=== PATIENT | female | born 1965 | race Caucasian/White ===

== ENCOUNTER → 2016-06-14 | Outpatient (CLI) | payer BC ==
[2016-06-14 11:00] LABS: EKG EKG PERFORMED
[2016-06-14 11:53] LABS: Basophils # (A) 0.1 k/uL (0-0.2); Basophils % (A) 1 %; CH 29.6; CHCM 31.9; Eosinophils # (A) 0.1 k/uL (0-0.7); Eosinophils % (A) 1 %; HCT 39.3 % (34.0-46.0); HDW 2.82; HGB 12.5 gm/dL (11.4-16.0); Hypochromasia Slight; Luc # (Auto) 0.18; Luc % (Auto) 2; Lymphocytes # (A) 2.2 k/uL (1.0-4.8); Lymphocytes % (A) 28 %; MCH 29.5 pg (25.0-35.0); MCHC 31.8 g/dL (31.0-37.0); MCV 92.8 fL (80.0-100.0); Mean Platelet Volume 6.8; Monocytes # (A) 0.3 k/uL (0-1.0); Monocytes % (A) 4 %; Neutrophils # (A) 5.1 k/uL (1.3-7.7); Neutrophils % (A) 65 %; RBC 4.23 m/uL (3.80-5.40); RDW 14.9 % (11.5-15.5); WBC 7.9 k/uL (3.8-10.6); WBC (Perox) 8.33
[2016-06-14 11:57] LABS: Appearance,Urine Cloudy (Clear); Bacteria,Urine Occasional /hpf; Bilirubin,Urine Negative (Negative); Glucose,Urine (UA) Negative (Negative); Ketones,Urine Trace (Negative); Leukocyte Esterase,Urine Moderate (Negative); Mucus,Urine Few /hpf; Nitrite,Urine Negative (Negative); PH, Urine 5.5 (5.0-8.0); Particle Count 10632; Protein,Urine 1+ (Negative); RBC,Urine 8 /hpf (0-5); Specific Gravity,Urine 1.025 (1.001-1.035); Squamous Epithelial Cell,Urine 3 /hpf (0-4); UA Billing (MACRO vs. MICRO) MICRO; WBC,Urine 11 /hpf (0-5)
[2016-06-14 12:10] LABS: ALT 31 U/L (9-52); AST 17 U/L (14-36); Alkaline Phosphatase 133 U/L (38-126); Anion Gap 13 mmol/L; Blood Urea Nitrogen 12 mg/dL (7-17); Calcium 9.9 mg/dL (8.4-10.2); Carbon Dioxide 22 mmol/L (22-30); Chloride 105 mmol/L (98-107); Glucose 106 mg/dL (74-99); Non-African American GFR(MDRD) >60 (>60 ml/min/1.73 sqM); Potassium 4.5 mmol/L (3.5-5.1); Sodium 140 mmol/L (137-145); Total Bilirubin 0.5 mg/dL (0.2-1.3); Total Protein 7.8 g/dL (6.3-8.2)
[2016-06-14 12:20] LABS: Partial Thromboplastin Time 23.7 sec (22.0-30.0); Prothrombin Time 10.3 sec (9.0-12.0)
== END | disposition home or self-care (01) ==
LOC: LABPAT 10:46
PROVIDERS: ATTEND Orthopaedic Surgery
DX: Z01.812 Encounter for preprocedural laboratory examination (principal); Z01.810 Encounter for preprocedural cardiovascular examination
CPT/HCPCS: 80053; 81001; 85025; 85610; 85730; 86850; 86900; 86901; 87070; 93005

== ENCOUNTER 2016-06-25 11:17 | Inpatient (IN) | payer BC ==
[2016-06-20 17:31] VITALS: BMI 26.6
[~2016-06-25 11:17] MED LIST: ACETAMINOPHEN TAB 500 MG TAB PO ONE; DEXAMETHASONE SOD PHOSPHATE 10 MG/ML 1 ML VIAL IV ONE; FAMOTIDINE 20 MG/2 ML VIAL IV PRN; LACTATED RINGERS 1,000 ML IV SCH; LIDOCAINE 1% 20 ML VIAL (10MG/ML) FOR IV START INTRADERMA PRN; MELOXICAM 7.5 MG TAB PO ONE; MIDAZOLAM 2 MG/2 ML VIAL IV PRN; ONDANSETRON 4 MG/2 ML VIAL IVP ONE; SCOPOLAMINE 1.5MG/72HR PATCH TRANSDERM ONE; TRANEXAMIC ACID 1,000 MG in SODIUM CHLORIDE 0.9% 100 ML IVPB ONE; ceFAZolin 2 GM in SODIUM CHLORIDE 0.9% 100 ML IVPB ONE
[2016-06-25] MEDS ORDERED: ceFAZolin 3,000 MG in SODIUM CHLORIDE 0.9% IRRIGATIO 3,000 ML IRRIGATION ONE (12:44)
[2016-06-25] MEDS ORDERED: PROPOFOL 10 MG/ML 20 ML VIAL IV ONE (12:44)
[2016-06-25] MEDS ORDERED: fentaNYL (PF) 50 MCG/ML 2 ML AMP ONE (12:44)
[2016-06-25] MEDS ORDERED: TRANEXAMIC ACID 1,000 MG/10 ML VIAL ONE (12:44)
[2016-06-25] MEDS ORDERED: SODIUM CHLORIDE 0.9% IRRIG 1,000 ML BTL IRRIGATION ONE (12:44)
[2016-06-25] MEDS ORDERED: KETAMINE 10 MG/ML 20 ML VIAL ONE (12:44)
[2016-06-25] MEDS ORDERED: HEPARIN SODIUM,PORCINE 10,000 UNIT/ML 1 ML VIAL ONE (12:44)
[2016-06-25] MEDS ORDERED: ePHEDrine 50 MG/ML 1 ML AMP ONE (12:44)
[2016-06-25] MEDS ORDERED: GLYCOPYRROLATE 0.2 MG/ML 2 ML VIAL ONE (12:44)
[2016-06-25] MEDS ORDERED: LIDOCAINE 1% INJ 10MG/ML (20 ML MDV) ONE (12:44)
[2016-06-25] MEDS ORDERED: PHENYLEPHRINE-0.9% NACL SYG 1 MG/10 ML SYRINGE ONE (12:44)
[2016-06-25] MEDS ORDERED: SODIUM CHLORIDE 0.9% 100 ML BAG ONE (12:44)
[2016-06-25] MEDS ORDERED: MIDAZOLAM 2 MG/2 ML VIAL ONE (12:44)
[2016-06-25] MEDS: ROPIVACAINE 246.25 MG, EPINEPHrine 0.5 MG, KETOROLAC 30 MG, cloNIDine HCL/PF 80 MCG, WA... MISCELLANE ONE ×10 (13:25→14:26)
--- NOTE | 2016-06-25 14:39 | XR ---
FLUOROSCOPY 19 seconds of fluoroscopy time were utilized during anterior hip. 2 images document the procedure.
[2016-06-25] MEDS ORDERED: LACTATED RINGERS 1,000 ML IV ONE (14:40)
[2016-06-25] MEDS ORDERED: HYDROmorphone 1 MG/ML 1 ML SYRINGE IVP PRN ×3 (14:56)
[2016-06-25] MEDS ORDERED: NALOXONE 0.4 MG/ML 1 ML VIAL IV PRN (14:56)
[2016-06-25] MEDS ORDERED: MAGNESIUM HYDROXIDE 2,400 MG/10 ML CUP PO PRN (14:56)
[2016-06-25] MEDS ORDERED: ONDANSETRON 4 MG/2 ML VIAL IVP PRN (14:56)
[2016-06-25] MEDS ORDERED: DIAZEPAM 5 MG TAB PO PRN ×2 (14:56)
[2016-06-25] MEDS ORDERED: HYDROcodone/APAP 5-325MG 1 EACH TAB PO PRN (14:56)
--- NOTE | 2016-06-25 14:58 | P.OP ---
Date of Procedure: 06/25/16 Preoperative Diagnosis: Severe osteoarthritis left hip Postoperative Diagnosis: Severe osteoarthritis left hip Procedure(s) Performed: Left total hip arthroplasty with a direct anterior approach Implants: Harris and nephew Polarstem size 3 standard Harris & Nephew R3, 3 hole acetabular shell, 52 mm Harris [employer] Nephew reflection 6.5 mm cancellus screw, 20 mm 3 Harris [employer] Nephew R3, XLPE 20 acetabular liner Harris & Nephew Oxinium femoral head 36 m, +0 All components were press-fit. The articulation is ceramic on polyethylene. Anesthesia: spinal Surgeon: Ed Mendoza Fishing Accessories Maker #1: Lilia Lepe Estimated Blood Loss (ml): 125 Pathology: other (Femoral head) Condition: stable Disposition: PACU Indications for Procedure: After failure of conservative treatment we discussed the surgical and nonsurgical treatment options at length. Patient wishes to proceed with a total hip arthroplasty with a direct anterior approach. Complications specific to this procedure were discussed at length, including but not limited to infection, leg length discrepancy, dislocation, and nerve injury. Patient is aware of all these complications and informed consent was obtained Operative Findings: The operative findings are consistent with severe osteoarthritis of the left hip Description of Procedure: Patient was seen and evaluated in the preoperative area, consent was reviewed, and the surgical site was marked with a skin marker. Patient was then brought to the operating room and given prophylactic antibiotics intravenously. 1 g of Tranexamic acid was also given. A spinal anesthetic was administered by the anesthesia department. The patient was then placed on the hand table with the bony prominences well-padded. The hip area was then prepped and draped in usual sterile fashion. A universal timeout was then performed, which confirmed the patient's name, surgical site, ALLERGIES, and procedure being performed. Next the incision site was located at 1 cm distal and 1 cm lateral to the anterior superior iliac spine. The skin and subcutaneous tissues were sharply incised. Incision was carefully dissected down to the fascia overlying the tensor fascia yoni muscle. This fascia was then incised in line with the incision. Next, using blunt finger dissection, the tensor fascia yoni muscle was dissected off its investing fascia. The muscle was then carefully retracted laterally with a cobra retractor over the lateral neck of the femur. Next, the circumflex vessels were identified and cauterized using the AquaMantis device. The anterior hip capsule was then exposed. The capsule was then opened and an inverted T fashion. Retention sutures were placed in the inferior arms of the capsule. Cobra retractors were then placed intracapsularly. The proximal femur was then visualized. The femoral neck was then osteotomized appropriate level above the lesser trochanter. Small amount of traction was placed with the hand table. A small wedge of bone was then removed from the remaining femoral head. Next, using a corkscrew femoral head was easily removed from the acetabulum. On gross visual inspection, the femoral head had complete loss of articular cartilage in multiple periarticular osteophytes. Attention was then turned to the acetabulum. the acetabulum was exposed and any remaining labrum was excised. Sequential reaming of the acetabulum was performed using fluoroscopic guidance. When the appropriate size was reached, a trial was then placed. The position and fit of the trial was checked with fluoroscopy. The trial was then removed. Then, using fluoroscopic guidance, the final implant was impacted at 20 of anteversion and 40 of abduction, and fully seated in the acetabulum. 3 screws were then placed in the acetabulum. Again fluoroscopy was used to check position of the screws. Next, the liner was then impacted, with a 20 elevated liner located in the anterior superior quadrant. Component locking was confirmed. Attention was then directed to the femur. With the aid of the Anya table, the femur was externally rotated to approximately 130, extended, and abducted under the opposite leg. A side hook was then placed under the proximal femur, and the side hook elevator was used to elevate the proximal femur. Retractors were then placed. A capsular release was performed, as well as a release of the conjoined tendon, which afforded excellent visualization of the proximal femur. Next, a box osteotome was used to lateralize the proximal femur. A plug shaper hand was then used to locate the femoral canal. Sequential broaching was then performed with appropriate size which afforded excellent fixation in the proximal femur. The calcar was then planed. A trial was then placed with appropriate head and neck, and the hip was gently reduced with the aid of the Anya table. Fluoroscopy was then used to check position of the components, as well as to ensure equal leg lengths. The hip was then gently dislocated and the trials were then removed. Final implants were then impacted and the hip was again reduced. Final fluoroscopic x-rays confirmed that the components were in anatomic position, as well as equal leg lengths. The hip was also taken through range of motion, and found to be stable. The hip was then copiously irrigated with antibiotic solution with pulsatile lavage. The hip was then irrigated with Irrisept solution. The soft tissues were then injected with ropivacaine solution. A second dose of 1 g of Tranexamic acid was given. the fascia was then closed with 2-0 strata fix suture. The subcutaneous tissue was closed with 3-0 Vicryl. The subcuticular tissue was closed with 30 strata fix suture. The skin was then closed with Dermabond tape. The patient was then transferred to the recovery room in stable condition. The Asst. Lilia Lepe was required due to the complexity of surgery, and the need for skilled assembler surgical garment for positioning, draping, exposure, retraction, and closure of the wound.and closure of the wound.
[2016-06-25] MEDS: HYDROmorphone 1 MG/ML 1 ML SYRINGE IVP PRN ×4 (15:10→15:34)
[2016-06-25] MEDS: hydrOXYzine PAMOATE 25 MG CAP PO PRN (17:46)
[2016-06-25] MEDS: HYDROcodone/APAP 5-325MG 1 EACH TAB PO PRN (17:46)
[2016-06-25] MEDS: SODIUM CHLORIDE 0.9% 1,000 ML IV SCH (19:39)
[2016-06-25] MEDS: ceFAZolin 2 GM in SODIUM CHLORIDE 0.9% 100 ML IVPB SCH (19:39)
[2016-06-25] MEDS ORDERED: SENNOSIDES-DOCUSATE SODIUM 1 EACH TAB PO SCH (21:00)
[2016-06-25] MEDS: ASPIRIN 325 MG TAB PO SCH (21:16)
[2016-06-25 21:38] VITALS: RESP 16
[2016-06-26] MEDS: hydrOXYzine PAMOATE 25 MG CAP PO PRN (03:49)
[2016-06-26] MEDS: HYDROcodone/APAP 5-325MG 1 EACH TAB PO PRN (03:49)
[2016-06-26] MEDS: ceFAZolin 2 GM in SODIUM CHLORIDE 0.9% 100 ML IVPB SCH (04:24)
[2016-06-26] MEDS: SODIUM CHLORIDE 0.9% 1,000 ML IV SCH ×2 (04:24→16:08)
[2016-06-26] MEDS: ASPIRIN 325 MG TAB PO SCH (07:46)
[2016-06-26 08:37] LABS: Basophils % (A) 0 %; CH 30.2; CHCM 32.1; Eosinophils % (A) 0 %; HCT 31.2 % (34.0-46.0); HDW 2.54; Luc # (Auto) 0.11; Luc % (Auto) 1; Lymphocytes # (A) 2.3 k/uL (1.0-4.8); Lymphocytes % (A) 21 %; MCH 29.7 pg (25.0-35.0); MCHC 31.5 g/dL (31.0-37.0); Mean Platelet Volume 7.8; Monocytes # (A) 0.6 k/uL (0-1.0); Monocytes % (A) 6 %; Neutrophils % (A) 72 %; RBC 3.31 m/uL (3.80-5.40); RDW 15.4 % (11.5-15.5); WBC 11.1 k/uL (3.8-10.6); WBC (Perox) 9.81
[2016-06-26 08:38] LABS: HGB 9.8 gm/dL (11.4-16.0)
[2016-06-26] MEDS ORDERED: MELOXICAM 7.5 MG TAB PO SCH (09:00)
--- NOTE | 2016-06-26 09:30 | P.DS ---
Providers Date of admission: 06/25/16 11:17 Expected date of discharge: 06/26/16 Attending physician: Ed Mendoza Consults: 06/25/16 15:01 Consult Physician Routine Consulting Provider: Jose Rodrigues Consult Reason/Comments: medical management Do you want consulting provider notified?: Yes Primary care physician: Marielle Mark - Discharge Diagnosis(es) (1) Primary osteoarthritis of left hip Current Visit: Yes Status: Acute (2) Status post left hip replacement Current Visit: Yes Status: Acute Hospital Course: This is a pleasant 51-year-old female who was last seen in our office with complaints of left hip pain. The patient has known history of degenerative arthritis of the left hip and presented to discuss options. After discussion and consideration the patient elected to proceed with a left total hip arthroplasty. Patient was seen preoperatively medically cleared for surgery by her primary care physician. The patient was admitted to [facility] on 06/25/2016 and underwent left total hip arthroplasty with anterior approach. The procedure was performed without competitions or sequelae. Patient has done well postoperatively. She' s been up walking with physical therapy. She denies any other complaints at this time. Her vital signs are stable. She is not appear to be acute distress. She is alert and answers questions appropriate. Dressing clean dry and intact. Incision appears fine with no erythema or active drainage. Calf is soft and nontender. She has good foot and ankle motion without difficulty. He wishes to be discharged home today. The patient is orthopedically stable for discharge to home today with home care. Pertinent Studies: Laboratory Tests 06/26/16 08:02 WBC 11.1 H RBC 3.31 L Hgb 9.8 L D Hct 31.2 L MCV 94.0 Patient Condition at Discharge: Good Plan - Discharge Summary New Discharge Prescriptions: Aspirin 325 mg PO BID #60 tab HYDROcodone/APAP 7.5-325MG [[place] 7.5] 1 - 2 each PO Q6HR PRN #90 tab PRN Reason: Pain Sennosides-Docusate Sodium [Senokot-S] 2 tab PO DAILY #60 tablet Discharge Medication List ALPRAZolam [Alprazolam] 0.5 - 1 mg PO BID PRN 06/20/16 [History] HYDROcodone/APAP 5-325MG [[place] 5-325] 1 tab PO BID PRN 06/20/16 [History] Ibuprofen [Motrin] 800 mg PO TID PRN 06/20/16 [History] Lisinopril [Zestril] 10 mg PO HS 06/20/16 [History] Omeprazole [PriLOSEC] 20 mg PO DAILY PRN 06/20/16 [History] Sulfamethoxazole/Trimethoprim [Bactrim DS 800-160 mg] 1 tab PO BID 06/20/16 [ History] traMADol HCL [Ultram] 50 mg PO TID PRN 06/20/16 [History] Aspirin 325 mg PO BID #60 tab 06/26/16 [Rx] HYDROcodone/APAP 7.5-325MG [[place] 7.5] 1 - 2 each PO Q6HR PRN #90 tab 06/26/16 [ Rx] Sennosides-Docusate Sodium [Senokot-S] 2 tab PO DAILY #60 tablet 06/26/16 [Rx] Follow up Appointment(s)/Referral(s): Deedee Palomares MD [Primary Care Provider] - 2 Weeks Ed Mendoza DO [Doctor of Osteopathic Medicine] - 2 Weeks Activity/Diet/Wound Care/Special Instructions: Weightbearing as tolerated with walker Daily dressing changes, okay to shower after 24 hours with no drainage Keep incision clean and dry [facility] with questions or concerns [phone] Discharge Disposition: HOME WITH HOME HEALTH SERVICES
[2016-06-26 15:33] VITALS: BP 144/86; PULSE 83; TEMP 98.1
--- NOTE | 2016-06-26 17:04 | CONS ---
DATE OF CONSULTATION: I was consulted to see the patient for recommendations regarding antihypertensive medications, leukocytosis. Patient is admitted for left hip replacement elective surgery. Patient denied any fever or chills. Patient denied any nausea, vomiting, abdominal pain. Patient does not have any fevers. Patient does not have any dysuria. No symptoms of pneumonia, including cough or chest pain. Patient is clinically doing well and can be discharged from medical perspective. Patient's blood pressure remains on the low-normal side. Patient takes Lisinopril at home. In spite of not taking Lisinopril for the last 2 days, her blood pressure remains low normal, which is not expected ( ) post surgery. I recommended her not to take her blood pressure medication and check the blood pressure twice a day. I counseled her regarding appropriate way to measure the blood pressure and take it to Dr. Palomares's office. If it continues to be elevated, patient will need to be restarted back on her medication regimen. REVIEW OF SYSTEMS: CONSTITUTIONAL: No fever, no malaise, no fatigue. HEENT: No recent visual problems or hearing problems. Denied any sore throat. CARDIOVASCULAR: No chest pain, orthopnea, PND, no palpitations, no syncope. PULMONARY: No shortness of breath, no cough, no hemoptysis. GASTROINTESTINAL: No diarrhea, no nausea, no vomiting, no abdominal pain. Normoactive bowel sounds. NEUROLOGICAL: No headaches, no weakness, no numbness. HEMATOLOGICAL: Denies any bleeding or petechiae. GENITOURINARY: Denies any burning micturition, frequency, or urgency. MUSCULOSKELETAL/RHEUMATOLOGICAL: Denies any joint pain, swelling, or any muscle pain. ENDOCRINE: Denies any polyuria or polydipsia. The rest of the 14 point review of systems is negative. PAST MEDICAL HISTORY: 1. Gastroesophageal reflux disease. 2. Hypertension. 3. Osteoarthritis. 4. section. 5. Cholecystectomy. 6. Anxiety disorder. SOCIAL HISTORY: Patient smokes a pack per day. Denied any alcohol abuse or any drug abuse. FAMILY HISTORY: Denied any family history of hypertension or diabetes mellitus or coronary artery disease in the family. PHYSICAL EXAMINATION: VITAL SIGNS: Temperature 98.3, pulse of 69, respiratory rate of 16, blood pressure 115/67. Saturating at 99% on room air. GENERAL: The patient is alert and oriented x3, not in any acute distress. Well developed, well nourished. HEENT: Pupils are round and equally reacting to light. EOMI. No scleral icterus. No conjunctival pallor. Normocephalic, atraumatic. No pharyngeal erythema. No thyromegaly. CARDIOVASCULAR: S1 and S2 present. No murmurs, rubs, or gallops. PULMONARY: Chest is clear to auscultation, no wheezing or crackles. ABDOMEN: Soft, nontender, nondistended, normoactive bowel sounds. No palpable organomegaly. MUSCULOSKELETAL: No joint swelling or deformity. EXTREMITIES: No cyanosis, clubbing, or pedal edema. NEUROLOGICAL: Gross neurological examination did not reveal any focal deficits. SKIN: No rashes. LABORATORY DATA: Leukocytosis with WBC count of 11,100, hemoglobin 9.8. ASSESSMENT AND PLAN: 1. Right hip arthroplasty, right hip replacement. DVT prophylaxis and pain management as per primary service. 2. Hypertension. As mentioned above, will hold off lisinopril. Appropriate way to measure the blood pressure counseling was provided. Patient will follow with Dr. Palomares in 3 to 5 days. 3. Leukocytosis without any signs or symptoms of infection. 4. Possible acute blood loss anemia from surgery. 5. Gastroesophageal reflux disease. Patient can continue her home medications. 6. Osteoarthritis. Patient is okay to be discharged from the medical perspective. Will sign off at this point of time. Patient's primary care physician is Dr. Palomares. Patient will follow with Dr. Palomares in about a week. Activity as tolerated. Thank you for letting me participate in this patient's care.
--- NOTE | 2016-08-21 13:15 | XR ---
EXAMINATION TYPE: XR Hip Limited LT DATE OF EXAM: 06/25/2016 3:00 PM COMPARISON: 06/08/2014 HISTORY: Hip surgery TECHNIQUE: Single view FINDINGS: There is a left hip prosthesis. Components appear in anatomic position. IMPRESSION: No complicating process seen.
== END 2016-06-26 12:37 | disposition home health service (06) | DRG 470 ==
LOC: 2ORMAIN 11:17 → 3SUR 14:50
PROVIDERS: ADMIT Orthopaedic Surgery; ATTEND Orthopaedic Surgery
PROC: 0SRB04A Replacement of Left Hip Joint with Ceramic on Polyethylene Synthetic Substitute, Uncemented, Open Approach (ICD-10-PCS; principal; 2016-06-25 13:10)
DX: M16.12 Unilateral primary osteoarthritis, left hip (principal); D62 Acute posthemorrhagic anemia; I10 Essential (primary) hypertension; D72.829 Elevated white blood cell count, unspecified; F17.210 Nicotine dependence, cigarettes, uncomplicated; K21.9 Gastro-esophageal reflux disease without esophagitis; F41.9 Anxiety disorder, unspecified; Z82.49 Family history of ischemic heart disease and other diseases of the circulatory system
CPT/HCPCS: 73501; 85025; 86850; 86891; 86900; 86901; 88300

== ENCOUNTER → 2016-12-25 | Outpatient (CLI) | payer BC ==
--- NOTE | 2016-12-25 09:33 | CT ---
EXAMINATION TYPE: CT soft tissue neck w con DATE OF EXAM: 12/25/2016 COMPARISON: NONE HISTORY: 51-year-old female with left neck Swelling, evaluate for mass. TECHNIQUE: Contiguous axial scanning of the soft tissues of the neck performed with IV Contrast, singh ent injected with 100 mL of Omnipaque 300. Coronal/sagittal reconstructions performed. CT DLP: 303.7 mGycm Automated exposure control for dose reduction was used. FINDINGS: Visualized intracranial structures and mastoid air cells are clear. There is trace air-fluid level in the right sphenoid sinus. Rightward nasal septal deviation noted. The nasopharynx is clear. There is some asymmetric left-sided lingual tonsillar hypertrophy. Otherwise, the oropharynx is clear . The epiglottis and prevertebral soft tissues are within normal limits. The tracheal column and visual ized upper lungs are clear. The thyroid gland, submandibular glands, and right parotid gland appear satisfactory. There is a large lobulated, heterogeneously enhancing mass centered within the superficial lobe of th e parotid gland. Mass measures 3.7 cm wide by 4.3 cm AP by 4.9 cm craniocaudal in mass effect onto th e anterior margin of the upper left sternocleidomastoid and abuts the left stylohyoid muscle. Relativ zoya symmetrical prominent upper cervical lymph nodes measuring up to 1 cm on the right and 8 mm on th e left. No suspicious lymphadenopathy is seen No osseous destructive process. IMPRESSION: 1. LARGE LOBULATED, HETEROGENEOUSLY ENHANCING MASS FILLING THE SUPERFICIAL LOBE OF THE LEFT PAROTID G LAND MEASURING UP TO 4.9 CM. 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 2. NO EXTRAGLANDULAR INVASION OR SUSPICIOUS CERVICAL LYMPHADENOPATHY IDENTIFIED.
== END | disposition home or self-care (01) ==
LOC: RADCTMAIN 08:39
PROVIDERS: ATTEND Otolaryngology
DX: K11.8 Other diseases of salivary glands (principal)
CPT/HCPCS: 70491; Q9967